=== PATIENT | male | born 1995 ===

== ENCOUNTER 2016-12-16 02:23 | Emergency (ER) | payer OTHER ==
[2016-12-16 02:31] VITALS: TEMP 98.2; O2SAT 96
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
[2016-12-16 04:07] VITALS: BP 110/69; PULSE 92; RESP 16
== END 2016-12-16 04:06 | disposition home or self-care (01) ==
DX: S00.83XA Contusion of other part of head, initial encounter (principal); Y04.0XXA Assault by unarmed brawl or fight, initial encounter